=== PATIENT | female | born 1945 | race Caucasian/White ===

== ENCOUNTER 2022-09-06 12:17 | Outpatient (CLI) | payer MEDICARE, OTHER | END 2022-09-06 23:59 | disposition home or self-care (01) | LOC: CARD DIAG 12:17 | PROVIDERS: ATTEND Internal Medicine Cardiovascular Disease | DX: I08.0 Rheumatic disorders of both mitral and aortic valves (principal); I48.0 Paroxysmal atrial fibrillation | CPT/HCPCS: 93306 ==